=== PATIENT | female | born 1950 | race Caucasian/White ===

== ENCOUNTER 2025-01-08 12:29 | Inpatient (IN) | payer MEDICARE, OTHER ==
[~2025-01-08] VITALS: Ht 165.1 cm; Wt 60.8 kg
[2025-01-08 12:43] LABS: BASOPHILS # (AUTO) 0.1 K/UL (0.0-0.2); BASOPHILS % (AUTO) 1.2 % (0.0-2.0); EOSINOPHILS # (AUTO) 0.2 K/uL (0.0-0.7); EOSINOPHILS % (AUTO) 4.5 % (0.0-7.0); HEMATOCRIT 35.9 % (31.2-41.9); HEMOGLOBIN 11.8 g/dL (10.9-14.3); LYMPHOCYTES % (AUTO) 37.1 % (20.5-51.5); MEAN CORPUSCULAR HEMOGLOBIN 28.3 uug (24.7-32.8); MEAN CORPUSCULAR HGB CONC 33 g/dL (32.3-35.6); MONOCYTES # (AUTO) 0.6 K/uL (0.1-1.30); MONOCYTES % (AUTO) 11.7 % (0.0-11.0); NEUTROPHILS # (AUTO) 2.4 K/uL (1.8-8.9); NEUTROPHILS % (AUTO) 45.5 % (38.5-71.5); PLATELET COUNT (AUTO) 250 K/uL (179-408); RED BLOOD CELL COUNT(AUTO) 4.18 MIL/uL (3.63-4.92); RED CELL DISTRIBUTION WIDTH 14.6 % (12.3-17.7); WHITE BLOOD COUNT (AUTO) 5.3 K/uL (3.8-11.8)
[2025-01-08 12:48] LABS: CALCIUM 8.9 mg/dL (8.5-10.1); CARBON DIOXIDE 26 mmol/L (21-32); CHLORIDE 101 mmol/L (98-107); CREATININE 0.9 mg/dL (0.6-1.3); GLUCOSE 82 mg/dL (74-106); POTASSIUM 4.4 mmol/L (3.5-5.1); SODIUM SERUM 134 mmol/L (136-145); UREA NITROGEN, BLOOD 15 mg/dL (7-18)
[2025-01-08 12:53] LABS: ALANINE AMINOTRANSFERASE 34 U/L (14-59); ALBUMIN 3.4 g/dL (3.4-5.0); ALKALINE PHOSPHATASE 99 U/L (50-136); ASPARTATE AMINOTRANSFERASE 30 U/L (15-37); BILIRUBIN,DIRECT 0.1 mg/dL (0.0-0.2); BILIRUBIN,TOTAL 0.4 mg/dL (0.2-1.0); TOTAL PROTEIN, SERUM 7.3 g/dL (6.4-8.2)
[2025-01-08] MEDS ORDERED: PALI156D IM (12:59)
[2025-01-08] MEDS ORDERED: ASCO500C18 PO (12:59)
[2025-01-08] MEDS ORDERED: ACET-2030 PO (12:59)
[2025-01-08] MEDS ORDERED: LURA40TA PO (12:59)
[2025-01-08] MEDS ORDERED: HALO5TAB12 PO (12:59)
[2025-01-08] MEDS ORDERED: CHOL10005 PO (12:59)
[2025-01-08] MEDS ORDERED: HYDR-501 PO (12:59)
[2025-01-08] MEDS ORDERED: ALBU8.5H8 INH (12:59)
[2025-01-08] MEDS ORDERED: ATOR10TA PO (12:59)
[2025-01-08 13:03] LABS: ETHANOL < 3 MG/DL (0-10)
[2025-01-08 13:12] LABS: DIFFERENTIAL COMMENT 1
[2025-01-08 14:02] LABS: *BILIRUBIN,URIN NEGATIVE (NEGATIVE); *BLOOD, URINE NEGATIVE (NEGATIVE); *CLARITY,URINE CLEAR (CLEAR); *COLOR,URINE YELLOW (YELLOW); *KETONES,URINE NEGATIVE (NEGATIVE); *PROTEIN,URINE NEGATIVE (NEGATIVE); *UROBILINOGEN,URINE 0.2 E.U./dl (NORMAL); LEUKOCYTE ESTERASE ,URINE TRACE (NEGATIVE); NITRITE, URINE NEGATIVE (NEGATIVE); PH,URINE 6.5 (5.0-8.0); UGLUCOSE NEGATIVE (NEGATIVE)
[2025-01-08 14:16] LABS: *AMPHETAMINE, URINE NEGATIVE (NEGATIVE); *BARBITURATE, URINE NEGATIVE (NEGATIVE); *BENZODIAZEPINE, URINE NEGATIVE (NEGATIVE); *CANNABINOID, URINE NEGATIVE (NEGATIVE); *COCCAINE, URINE NEGATIVE (NEGATIVE); *OPIATE, URINE NEGATIVE (NEGATIVE); *PHENCYCLIDINE SCREEN,URINE NEGATIVE (NEGATIVE); FENTANYL, URINE NEGATIVE (NEGATIVE)
[2025-01-08 15:51] LABS: SQUAMOUS EPITHELIAL CELL,UR FEW /HPF (NONE SEEN); WBC,URINE 0-3 /HPF (0-3)
[2025-01-08] MEDS ORDERED: ZOLPIDEM 5 MG TABLET PO PRN (18:45)
[2025-01-08] MEDS ORDERED: QUETIAPINE FUMARATE 25 MG TABLET PO PRN (18:45)
[2025-01-08 19:00] VITALS: BP 121/53; TEMP 97.9; O2SAT 99
[2025-01-08 20:01] VITALS: BP 122/69; TEMP 98.1; O2SAT 98
[2025-01-08 21:40] LABS: ACETAMINOPHEN < 2.0 ug/mL (10-30)
[2025-01-09] MEDS ORDERED: ALBUTEROL SULFATE 2.5 MG/3 ML NEBU NEB PRN (00:30)
[2025-01-09 07:57] VITALS: BP 115/70; TEMP 97.2; O2SAT 96
[2025-01-09] MEDS: ASCORBIC ACID 500 MG TABLET PO SCH (09:12)
[2025-01-09] MEDS: CHOLECALCIFEROL 1,000 UNIT TABLET PO SCH (09:12)
[2025-01-09] MEDS ORDERED: HALO5VIA9 IM (09:14)
[2025-01-09 09:42] LABS: ALANINE AMINOTRANSFERASE 31 U/L (14-59); ALBUMIN 3.8 g/dL (3.4-5.0); ALKALINE PHOSPHATASE 110 U/L (50-136); ASPARTATE AMINOTRANSFERASE 31 U/L (15-37); BILIRUBIN,DIRECT 0.2 mg/dL (0.0-0.2); BILIRUBIN,TOTAL 0.5 mg/dL (0.2-1.0); CALCIUM 9.3 mg/dL (8.5-10.1); CARBON DIOXIDE 26 mmol/L (21-32); CHLORIDE 102 mmol/L (98-107); GLUCOSE 118 mg/dL (74-106); POTASSIUM 4.6 mmol/L (3.5-5.1); SODIUM SERUM 136 mmol/L (136-145); TOTAL PROTEIN, SERUM 8.5 g/dL (6.4-8.2); UREA NITROGEN, BLOOD 13 mg/dL (7-18)
[2025-01-09] MEDS ORDERED: MAGNESIUM HYDROXIDE 30 ML LIQUID UDC PO PRN (10:45)
[2025-01-09] MEDS ORDERED: ACETAMINOPHEN 325 MG TABLET PO PRN (10:45)
[2025-01-09] MEDS: BLOOD SUGAR DIAGNOSTIC 1 EACH STRIP VI ONE (11:15)
[2025-01-09] MEDS: risperiDONE 1 MG TABLET PO SCH (12:01)
[2025-01-09 16:38] VITALS: BP 125/68; TEMP 97.5; O2SAT 96
[2025-01-09] MEDS: ENSURE ENLIVE (VAN) 240 ML LIQUID PO SCH (18:10)
[2025-01-09] MEDS: risperiDONE-M 0.5 MG TAB.RAPDIS PO PRN (19:53)
[2025-01-09 20:05] VITALS: BP 135/65; TEMP 97.9; O2SAT 96
[2025-01-09] MEDS: ATORVASTATIN 10 MG TABLET PO SCH (21:00)
[2025-01-09] MEDS: TEMAZEPAM 7.5 MG CAPSULE PO PRN (23:58)
[2025-01-10 08:46] VITALS: BP 127/56; TEMP 98.2; O2SAT 96
[2025-01-10 15:52] VITALS: BP 142/50; TEMP 98; O2SAT 94
[2025-01-10] MEDS: OLANZAPINE 10 MG VIAL IM ONE (17:41)
[2025-01-10] MEDS: ACETAMINOPHEN 325 MG TABLET PO PRN (20:07)
[2025-01-11 08:08] VITALS: BP 139/62; TEMP 98.4; O2SAT 96
[2025-01-11 15:53] VITALS: BP 140/63; TEMP 98; O2SAT 98
[2025-01-11 20:00] VITALS: BP 127/55; TEMP 97.8; O2SAT 95
[2025-01-11] MEDS: risperiDONE 2 MG TABLET PO SCH (20:55)
[2025-01-11] MEDS ORDERED: risperiDONE 1 MG TABLET PO SCH (21:00)
[2025-01-12 10:42] VITALS: BP 131/62; TEMP 98.2; O2SAT 98
[2025-01-12 15:27] VITALS: BP 116/45; TEMP 98.2; O2SAT 96
[2025-01-12] MEDS: GUAIFENESIN/DEXTROMETHORPHAN 5 ML UDC PO PRN (22:55)
[2025-01-13 08:20] VITALS: BP 140/66; TEMP 98.3; O2SAT 93
[2025-01-13 16:52] VITALS: BP 126/63; TEMP 97.8; O2SAT 95
[2025-01-13 20:00] VITALS: BP 140/61; TEMP 97.8; O2SAT 93
[2025-01-13] MEDS: risperiDONE 2 MG TABLET PO SCH (20:33)
[2025-01-14 08:18] VITALS: BP 144/61; TEMP 98.1; O2SAT 99
[2025-01-14] MEDS: PALIPERIDONE PALMITATE 234 MG/1.5 ML SYRINGE IM ONE (12:26)
[2025-01-14 16:53] VITALS: BP 113/56; TEMP 97.8; O2SAT 97
[2025-01-14 20:12] VITALS: BP 136/64; TEMP 98.1; O2SAT 96
[2025-01-15 08:18] VITALS: BP 128/54; TEMP 98.4; O2SAT 99
[2025-01-15] MEDS: MAG HYDROX/AL HYDROX/SIMETH 30 ML LIQUID UDC PO PRN (09:18)
[2025-01-15] MEDS: OLANZAPINE 2.5 MG TABLET PO SCH (13:50)
[2025-01-15] MEDS: OLANZAPINE 10 MG VIAL IM STA (15:36)
[2025-01-15 16:33] VITALS: BP 105/49; TEMP 98.6; O2SAT 100
[2025-01-15 19:48] VITALS: BP 123/44; TEMP 97.8; O2SAT 91
[2025-01-16 08:02] VITALS: BP 153/60; TEMP 98; O2SAT 94
[2025-01-16] MEDS: OLANZAPINE 2.5 MG TABLET PO SCH (14:00)
[2025-01-16] MEDS: OLANZAPINE 10 MG VIAL IM PRN (14:10)
[2025-01-16 15:07] VITALS: BP 135/54; TEMP 98; O2SAT 94
[2025-01-16 20:00] VITALS: BP 121/47; TEMP 98; O2SAT 93
[2025-01-17 08:18] VITALS: BP 125/52; TEMP 98; O2SAT 94
[2025-01-17] MEDS: LITHIUM CARBONATE 150 MG CAPSULE PO SCH (11:19)
[2025-01-17] MEDS: OLANZAPINE 10 MG VIAL IM ONE (12:13)
[2025-01-17 15:28] VITALS: BP 110/59; TEMP 98; O2SAT 98
[2025-01-17 20:00] VITALS: BP 110/52; TEMP 98.1; O2SAT 93
[2025-01-18 08:02] VITALS: BP 120/46; TEMP 98; O2SAT 94
[2025-01-18] MEDS ORDERED: TEMAZEPAM 7.5 MG CAPSULE PO PRN (12:00)
[2025-01-18 16:04] VITALS: BP 98/56; TEMP 98; O2SAT 94
[2025-01-18] MEDS: OLANZAPINE ZYDIS 5 MG TAB.RAPDIS PO ONE (18:53)
[2025-01-18 20:00] VITALS: BP 119/52; TEMP 97.6
[2025-01-18] MEDS: TEMAZEPAM 15 MG CAPSULE PO PRN (22:07)
[2025-01-19 08:35] VITALS: BP 146/96; TEMP 98; O2SAT 94
[2025-01-19 15:32] VITALS: BP 117/52; TEMP 98; O2SAT 100
[2025-01-19 19:55] VITALS: BP 126/66; TEMP 98.1; O2SAT 96
[2025-01-20 08:28] VITALS: BP 138/45; TEMP 98; O2SAT 100
[2025-01-20 16:42] VITALS: BP 133/51; TEMP 98.1; O2SAT 96
[2025-01-20 20:00] VITALS: BP 124/65; TEMP 97.6; O2SAT 92
[2025-01-21 08:51] VITALS: BP 114/35; TEMP 98.8; O2SAT 97
[2025-01-21 12:14] LABS: CALCIUM 9.8 mg/dL (8.5-10.1); CARBON DIOXIDE 29 mmol/L (21-32); CHLORIDE 106 mmol/L (98-107); CREATININE 1.1 mg/dL (0.6-1.3); GLUCOSE 106 mg/dL (74-106); POTASSIUM 4.7 mmol/L (3.5-5.1); SODIUM SERUM 142 mmol/L (136-145); UREA NITROGEN, BLOOD 27 mg/dL (7-18)
[2025-01-21] MEDS: GABAPENTIN 300 MG CAPSULE PO SCH (13:03)
[2025-01-21] MEDS: LORAZEPAM 2 MG/1 ML VIAL IM STA (13:59)
[2025-01-21] MEDS ORDERED: LITHIUM CARBONATE 150 MG CAPSULE PO SCH (21:00)
[2025-01-21] MEDS: LITHIUM CARBONATE 300 MG CAPSULE PO SCH (21:25)
[2025-01-22 16:33] VITALS: BP 129/53; TEMP 98; O2SAT 95
[2025-01-22 20:02] VITALS: BP 132/56; TEMP 98.1; O2SAT 96
[2025-01-23 08:57] VITALS: BP 128/45; TEMP 97.3; O2SAT 95
[2025-01-23] MEDS: GABAPENTIN 300 MG CAPSULE PO SCH (13:52)
[2025-01-23 16:18] VITALS: BP 129/59; TEMP 97.8; O2SAT 92
[2025-01-23 20:05] VITALS: BP 136/59; TEMP 98.1; O2SAT 95
[2025-01-24 07:30] VITALS: BP 134/49; TEMP 98; O2SAT 91
[2025-01-24] MEDS: GABAPENTIN 300 MG CAPSULE PO SCH (13:28)
[2025-01-24 15:50] VITALS: BP 105/51; TEMP 98; O2SAT 90
[2025-01-24 19:44] VITALS: BP 104/52; TEMP 98.1; O2SAT 95
[2025-01-25 09:16] VITALS: BP 138/80; TEMP 98; O2SAT 96
== END 2025-01-25 11:00 | DRG 885 ==
LOC: ER 12:29 → GPS 16:11
PROVIDERS: ADMIT Psychiatry & Neurology Psychiatry; ATTEND Nurse Practitioner Acute Care
DX: F25.9 Schizoaffective disorder, unspecified (principal); I10 Essential (primary) hypertension; J45.909 Unspecified asthma, uncomplicated; F17.210 Nicotine dependence, cigarettes, uncomplicated; E78.5 Hyperlipidemia, unspecified; Z79.899 Other long term (current) drug therapy; Z88.5 Allergy status to narcotic agent; Z88.8 Allergy status to other drugs, medicaments and biological substances; G47.00 Insomnia, unspecified; Z91.411 Personal history of adult psychological abuse; Z91.410 Personal history of adult physical and sexual abuse; R26.2 Difficulty in walking, not elsewhere classified; F41.9 Anxiety disorder, unspecified; F32.A Depression, unspecified; F15.11 Other stimulant abuse, in remission; F14.11 Cocaine abuse, in remission
CPT/HCPCS: 36415; 70030-TC; 80164; 85025; 93005; A4606; A4663; G0480; J2060; J2358; J2426